=== PATIENT | male | born 1970 | race Caucasian/White ===

== ENCOUNTER 2018-09-17 20:20 | Emergency (ER) | payer OTHER ==
[~2018-09-17] VITALS: Ht 170.2 cm; Wt 90.3 kg
[2018-09-17 20:32] VITALS: Ht 170.2 cm; Wt 90.3 kg
[2018-09-17 21:34] VITALS: BP 142/79
== END 2018-09-17 21:34 | disposition home or self-care (01) ==
LOC: ED 20:20
DX: S60.312A Abrasion of left thumb, initial encounter (principal); L03.114 Cellulitis of left upper limb; Z98.890 Other specified postprocedural states; W55.03XA Scratched by cat, initial encounter; Y93.89 Activity, other specified; Y92.89 Other specified places as the place of occurrence of the external cause; Y99.8 Other external cause status
CPT/HCPCS: 90715; J0696